=== PATIENT | male | born 2000 | race Hispanic/Latino ===

== ENCOUNTER 2019-04-26 09:16 | Outpatient (CLI) | payer OTHER ==
--- NOTE | 2019-04-26 18:12 | RAD ---
RIGHT FOOT THREE VIEWS: 04/26/19 No fracture or periosteal reaction was seen. The base of the fifth metatarsal appears normal, as does the remainder of the foot. IMPRESSION: No acute findings. POS: HOME
== END 2019-04-26 09:17 | disposition home or self-care (01) ==
LOC: BURRAD 09:16
PROVIDERS: ATTEND Family Medicine
DX: M79.671 Pain in right foot (principal)

== ENCOUNTER 2020-06-16 11:11 | Outpatient (CLI) | payer BC ==
--- NOTE | 2020-06-16 18:27 | RAD ---
THORACIC SPINE THREE VIEWS: Date: 06-16-2020 FINDINGS: A very minor S-shaped curve is seen in the thoracic spine. No fracture, disc space narrowing, or bony anomalies was apparent. IMPRESSION: Very minor scoliosis. POS: HOME
== END 2020-06-16 11:12 | disposition home or self-care (01) ==
LOC: BURRAD 11:11
PROVIDERS: ATTEND Family Medicine
DX: M54.6 Pain in thoracic spine (principal); M41.9 Scoliosis, unspecified
CPT/HCPCS: 72072